=== PATIENT | female | born 1985 | race American Indian/Alaskan Native ===

== ENCOUNTER 2018-04-09 22:13 | Observation (INO) | payer MEDICAID ==
[2018-04-09] MEDS ORDERED: COLACE PO PRN (22:39)
[2018-04-09] MEDS ORDERED: ALUM-MAG HYDROX-SIMETH 200-200-20MG/5ML PO PRN (22:39)
[2018-04-09] MEDS ORDERED: TYLENOL PO PRN (22:39)
--- NOTE | 2018-04-09 22:49 | History and Physical Report ---
History of Present Illness Date of examination: 04/09/18 History of present illness: Patient seen at maternal medicine date of admission with a diagnosis of oligohydramnios. Discussed with Dr. Beaver decided to place patient in hydrate and repeat ultrasound if continued oligohydramnios with move toward induction of labor Menstrual History Regularity: irregular Duration: 5 LMP: 07/19/2017 LMP reliability: month known LMP character: normal test type: urine test Date: 12/22/2017 BC at conception: other hormonal Planned ? no EDC Calculations EDC Confirmation: 05/06/2018 Past History : 4 Term Births: 2 Premature Births: 0 Living Children: 2 Para: 2 Mult. Births: 0 Prev : 0 Prev. attempt? 0 Aborta: 1 Elect. Ab: 1 Spont. Ab: 0 Ectopics: 0 # 1 Delivery date: 2004 Weeks Gestation: term labor: no Delivery type: Infant Sex: Female weight: 6#1 # 2 Delivery date: 2007 Weeks Gestation: term labor: no Delivery type: Infant Sex: Male weight: 6#9 # 3 Delivery date: 2013 Weeks Gestation: 6 Delivery type: EAB Risk Factors: Smoked Tobacco Use: Never smoker Smokeless Tobacco Use: Never Passive smoke exposure: no Drug use: no HIV high-risk behavior: low risk Alcohol use: no Seatbelt use: 100 % Family History Risk Factors: Family History of VA in females < 65 years old: no Family History of VA in males < 55 years old: no Past Medical History: Negative Past Medical History Past Surgical History: R ankle - screws and plates Past Medical History Surgery (Non-ob gyn): R ankle - screws and plates Abnormal PAP: negative Family Hx: HTN - MGM, mother Social Hx: single Works [employer] no etoh/drugs/smoking Infection History Hx of STD: none HIV Risk Eval: low risk Hepatitis B Risk Eval: low risk Personal hx. of genital herpes: no Partner hx. of genital herpes: no Rash, Viral, or Febrile illness since last LMP? no Varicella/Chicken Pox Status: Previous Disease Genetic History Congenital Heart Defect: Mom: no Dad: no Shayla Disease: Mom: no Dad: no Thalassemia Mom: no Dad: no Neural Tube Defect Mom: no Dad: no Down's Syndrome Mom: no Dad: no Negro-Sachs Mom: no Dad: no Sickle Cell Disease/Trait Mom: no Dad: no Hemophilia Mom: no Dad: no Muscular Dystrophy Mom: no Dad: no Cystic Fibrosis Mom: no Dad: no [place] Chorea Mom: no Dad: no Mental Retardation Mom: no Dad: no Fragile X Mom: no Dad: no Other Genetic/Chromosomal Disorder Mom: no Dad: no Child w/other defect Mom: no Dad: no Enviromental Exposures Xray Exposure: no Medication, drug, or alcohol use since LMP: no Chemical/Other Exposure: no Exposure to Cat Liter: no Hx of Parvovirus (Fifth Disease): no Occupational Exposure to Children: none Current Allergies: No known allergies Past History Past Medical History: other (see HPI) Past Surgical History: other (see HPI) 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) Family/Genetic History: other (see HPI) Social history: other (see HPI) - Obstetrical History Expected Date of Delivery: 05/06/18 Actual Gestation: 36 Week(s) 2 Day(s) : 4 Para: 2 Hx # Term Pregnancies: 2 Number of Pregnancies: 0 Spontaneous Abortions: 0 Induced : 1 Number of Living Children: 2 Medications and Allergies Allergies Allergy/AdvReac Type Severity Reaction Status Date / Time No Known Allergies Allergy Verified 04/09/18 23:38 - Physical Exam Breasts: Positive: deferred Cardiovascular: Regular rate Lungs: Positive: Normal air movement Abdomen: Positive: normal appearance, soft Results All other labs normal. Assessment and Plan - Patient Problems (1) Oligohydramnios in [place] in third trimester Current Visit: Yes Status: Acute Plan to address problem: We'll admit and hydrate overnight repeat ultrasound in the morning
[2018-04-09] MEDS ORDERED: LACTATED RINGERS 1,000 ML IV SCH (23:00)
--- NOTE | 2018-04-10 08:15 | Ultrasound Report ---
FINAL REPORT EXAM: US OB LIMITED HISTORY: F/u olihydramnios after hydration COMPARISONS: None provided. FINDINGS: Transabdominal limited 3rd trimester grayscale, color Doppler and M-mode ultrasound Single living intrauterine in cephalic presentation with recorded cardiac activity of 146 beats per minute and amniotic fluid index of 8.5 cm with maximum vertical pocket of 4 cm. IMPRESSION: Amniotic fluid index is 8.5 cm with maximum vertical pocket of 4 cm. Correlation with prior exams is requested. Single living intrauterine .
[2018-04-10 08:44] VITALS: BP 122/67
--- NOTE | 2018-04-10 08:52 | Discharge Summary ---
Providers - Providers Date of Admission: 04/10/18 02:32 Date of discharge: 04/10/18 Attending physician: JOSE ANGEL MCKEON Primary care physician: JOSE ANGEL MCKEON Hospitalization Reason for admission: Observation for Oligohydramnios Condition: Good Pertinent studies: repeat CASIMIRO 8.5. Spoke with Dr. Beaver, he states she may be d/c'd home with any CASIMIRO >5. Procedures: IVF hydration Hospital course: observation and IVF hydration Disposition: DC-01 TO HOME OR SELFCARE - Discharge Diagnoses (1) Oligohydramnios in [place] in third trimester Status: Acute Core Measure Documentation - Palliative Care Palliative Care/ Comfort Measures: Not Applicable - Core Measures Any of the following diagnoses?: none Exam - Constitutional Vitals: Temp Pulse Resp BP Pulse Ox 97.8 F 78 18 122/67 04/10/18 08:43 04/10/18 08:48 04/10/18 08:43 04/10/18 08:48 General appearance: Present: no acute distress, well-nourished - EENT Eyes: Present: PERRL ENT: hearing intact, clear oral mucosa - Neck Neck: Present: supple, normal ROM - Respiratory Respiratory effort: normal Respiratory: bilateral: CTA - Cardiovascular Heart Sounds: Present: S1 & S2. Absent: rub, click - Extremities Extremities: pulses symmetrical, No edema Peripheral Pulses: within normal limits - Abdominal General gastrointestinal: Present: soft, non-tender, non-distended, normal bowel sounds Female genitourinary: Present: normal - Integumentary Integumentary: Present: clear, warm, dry - Musculoskeletal Musculoskeletal: gait normal, strength equal bilaterally - Psychiatric Psychiatric: appropriate mood/affect, intact judgment & insight - Neurologic Neurologic: CNII-XII intact, moves all extremities - Additional findings Additional findings: FHT cat 1, no ctx, leaking or vaginal bleeding Plan Activity: no restrictions Diet: regular Follow up with: JOSE ANGEL MCKEON MD [Primary Care Provider] - 04/18/18 2:15 pm (Please keep your next scheduled appointment with both [facility] and our office. Call for any questions or concerns.)
[2018-04-10] MEDS ORDERED: PRENATAL VITAMIN PO SCH (10:00)
== END 2018-04-10 10:10 | disposition home or self-care (01) ==
LOC: TRG 22:13 → LD 22:39 → TRG 04-10 02:32 → LD 04-10 02:32
PROVIDERS: ADMIT Obstetrics & Gynecology; ATTEND Obstetrics & Gynecology
DX: O41.03X0 Oligohydramnios, third trimester, not applicable or unspecified (principal); Z3A.36 36 weeks gestation of pregnancy
CPT/HCPCS: 76815; 96360; 96361; G0378; J7120

== ENCOUNTER 2018-04-18 09:17 | Inpatient (IN) | payer MEDICAID ==
[2018-04-18] MEDS ORDERED: BRETHINE SUB-Q PRN (09:35)
[2018-04-18] MEDS ORDERED: ePHEDrine SULFATE IV PRN (09:35)
[2018-04-18] MEDS ORDERED: XYLOCAINE 2% INFILTRATI NR (09:35)
--- NOTE | 2018-04-18 09:52 | History and Physical Report ---
History of Present Illness Date of examination: 04/18/18 (pt presents for IOL due to persistent Oligo) Date of admission: 04/18/18 09:17 History of present illness: EDC Confirmation: 05/06/2018 Gestational Age: 20 5/7 weeks Past History : 4 Term Births: 2 Premature Births: 0 Living Children: 2 Para: 2 Mult. Births: 0 Prev : 0 Prev. attempt? 0 Aborta: 1 Elect. Ab: 1 Spont. Ab: 0 Ectopics: 0 # 1 Delivery date: 2004 Weeks Gestation: term labor: no Delivery type: Infant Sex: Female weight: 6#1 # 2 Delivery date: 2006 Weeks Gestation: term labor: no Delivery type: Infant Sex: Male weight: 6#9 # 3 Delivery date: 2013 Weeks Gestation: 6 Delivery type: EAB Risk Factors: Smoked Tobacco Use: Never smoker Smokeless Tobacco Use: Never Passive smoke exposure: no Drug use: no HIV high-risk behavior: low risk Alcohol use: no Seatbelt use: 100 % Family History Risk Factors: Family History of RI in females < 65 years old: no Family History of RI in males < 55 years old: no Past Medical History: Negative Past Medical History Past Surgical History: R ankle - screws and plates Past Medical History 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 of genital herpes: no Partner hx. of genital herpes: no Rash, Viral, or Febrile illness since last LMP? no Varicella/Chicken Pox Status: Previous Disease Genetic History Congenital Heart Defect: Mom: no Dad: no Shayla Disease: Mom: no Dad: no Thalassemia Mom: no Dad: no Neural Tube Defect Mom: no Dad: no Down's Syndrome Mom: no Dad: no Negro-Sachs Mom: no Dad: no Sickle Cell Disease/Trait Mom: no Dad: no Hemophilia Mom: no Dad: no Muscular Dystrophy Mom: no Dad: no Cystic Fibrosis Mom: no Dad: no [place] Chorea Mom: no Dad: no Mental Retardation Mom: no Dad: no Fragile X Mom: no Dad: no Other Genetic/Chromosomal Disorder Mom: no Dad: no Child w/other defect Mom: no Dad: no Enviromental Exposures Xray Exposure: no Medication, drug, or alcohol use since LMP: no Chemical/Other Exposure: no Exposure to Cat Liter: no Hx of Parvovirus (Fifth Disease): no Occupational Exposure to Children: none Current Allergies: No known allergies Past History - Obstetrical History Expected Date of Delivery: 05/05/18 Actual Gestation: 37 Week(s) 4 Day(s) : 4 Para: 2 Hx # Term Pregnancies: 2 Number of Pregnancies: 0 Spontaneous Abortions: 0 Induced : 1 Number of Living Children: 2 Medications and Allergies Allergies Allergy/AdvReac Type Severity Reaction Status Date / Time No Known Allergies Allergy Verified 04/09/18 23:38 - Physical Exam Breasts: Positive: deferred Cardiovascular: Regular rate, Normal S1, Normal S2 Lungs: Positive: Clear to auscultation, Normal air movement Abdomen: Positive: normal appearance, soft, normal bowel sounds. Negative: distention, tenderness Vulva: both: normal Vagina: Positive: normal moisture. Negative: discharge Cervix: Negative: lesion, discharge Uterus: Positive: normal size, normal contour Adnexa: both: normal Anus/Rectum: Positive: normal perianal skin, heme negative. Negative: rectal mass, hemorrhoids Extremities: Positive: edema Deep Tendon Reflex Grade: Normal +2 - Obstetrical FHR: category 1 Uterine Contraction Monitor Mode: External Cervical Dilatation: 2 (very posterior) Cervical Effacement Percentage: 50 station: -3 Uterine Contraction Pattern: Irregular Uterine Tone Measurement Phase: Resting Uterine Contraction Intensity: Mild Results Result Diagrams: 04/18/18 10:50 All other labs normal. GBS negative 04-06-18 Current OB Labs Blood Type: O (09/28/2017) Rh Type: positive (09/28/2017) Rh Antibody Screen: negative (09/28/2017) Hgb: 12.2 (09/28/2017) Hct: 36.1 (09/28/2017) Platelets: 236 (09/28/2017) Rubella: immune (09/28/2017) RPR: nonreactive (09/28/2017) Hep B Surface Antigen: negative (09/28/2017) HIV: negative (09/28/2017) Urine Culture: negative (09/28/2017) Optional Labs Varicella Ab: positive (09/28/2017) Sickle Cell: negative (09/28/2017) Hepatitis C: negative (09/28/2017) Assessment and Plan 32yo @ 37 weeks for IOL due to oligo GBS negative Orders in EMR
[2018-04-18] MEDS ORDERED: PITOCin/NS 30 UNIT/500ML 30 UNITS/500 ML BAG IV SCH (10:00)
[2018-04-18] MEDS ORDERED: PITOCin/NS 20 UNIT/1000ML DRIP 20 UNITS/1,000 ML BAG IV SCH (10:00)
[2018-04-18 11:34] LABS: Hematocrit 35.9 % (30.3-42.9); Hemoglobin 12.8 gm/dl (10.1-14.3); Mean Corpuscular HGB Conc 36 % (30-34); Mean Corpuscular Hemoglobin 33 pg (28-32); Mean Corpuscular Volume 93 fl (79-97); Platelet Count 171 K/mm3 (140-440); Red Blood Count 3.85 M/mm3 (3.65-5.03); Red Cell Distribution Width 13.9 % (13.2-15.2)
[2018-04-18] MEDS ORDERED: FLEET PR ONE (13:30)
[2018-04-18] MEDS: LACTATED RINGERS 1,000 ML IV SCH (13:34)
[2018-04-18] MEDS: ZOFRAN IV PRN (13:55)
--- NOTE | 2018-04-18 17:29 | Event Note ---
Date: 04/18/18 (pit off; cervidil @ 1999) explained POC to pt and family Pit off at this time Dinner and PM care. Will place Cervidil @ 1999 All questions addressed.
[2018-04-18] MEDS ORDERED: CERVIDIL VG ONE (20:00)
[2018-04-18] MEDS ORDERED: MINERAL OIL PO PRN (22:00)
[2018-04-19] MEDS: LACTATED RINGERS 1,000 ML IV SCH ×4 (01:20→19:58)
--- NOTE | 2018-04-19 07:42 | Progress Note ---
Assessment and Plan - Patient Problems (1) Oligohydramnios in [place] in third trimester Onset Date: ~04/19/18 Current Visit: No Status: Acute Plan to address problem: Pt A&O X 3 C/O some cramping VSS Cervidil remove SVE 1-2,50,-2 Pt OOB for AM care. Diet Will start pitocin @ 0900 All questions addressed. aware Subjective - Subjective Date of service: 04/19/18 (pt A&O X 3) Principal diagnosis: IUP 37.4 weeks Oligo IOL Interval history: EDC Confirmation: 05/06/2018 Gestational Age: 20 5/7 weeks Past History : 4 Term Births: 2 Premature Births: 0 Living Children: 2 Para: 2 Mult. Births: 0 Prev : 0 Prev. attempt? 0 Aborta: 1 Elect. Ab: 1 Spont. Ab: 0 Ectopics: 0 # 1 Delivery date: 2004 Weeks Gestation: term labor: no Delivery type: Sex: Female weight: 6#1 # 2 Delivery date: 2007 Weeks Gestation: term labor: no Delivery type: Sex: Male weight: 6#9 # 3 Delivery date: 2013 Weeks Gestation: 6 Delivery type: EAB Risk Factors: Smoked Tobacco Use: Never smoker Smokeless Tobacco Use: Never Passive smoke exposure: no Drug use: no HIV high-risk behavior: low risk Alcohol use: no Seatbelt use: 100 % Family History Risk Factors: Family History of AK in females < 65 years old: no Family History of AK in males < 55 years old: no Past Medical History: Negative Past Medical History Past Surgical History: R ankle - screws and plates Past Medical History 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 of genital herpes: no Partner hx. of genital herpes: no Rash, Viral, or Febrile illness since last LMP? no Varicella/Chicken Pox Status: Previous Disease Genetic History Congenital Heart Defect: Mom: no Dad: no Shayla Disease: Mom: no Dad: no Thalassemia Mom: no Dad: no Neural Tube Defect Mom: no Dad: no Down's Syndrome Mom: no Dad: no Negro-Sachs Mom: no Dad: no Sickle Cell Disease/Trait Mom: no Dad: no Hemophilia Mom: no Dad: no Muscular Dystrophy Mom: no Dad: no Cystic Fibrosis Mom: no Dad: no [place] Chorea Mom: no Dad: no Mental Retardation Mom: no Dad: no Fragile X Mom: no Dad: no Other Genetic/Chromosomal Disorder Mom: no Dad: no Child w/other defect Mom: no Dad: no Enviromental Exposures Xray Exposure: no Medication, drug, or alcohol use since LMP: no Chemical/Other Exposure: no Exposure to Cat Liter: no Hx of Parvovirus (Fifth Disease): no Occupational Exposure to Children: none Current Allergies: No known allergies Patient reports: movement normal Objective - Vital Signs Vital Signs: Vital Signs - 12hr 04/18/18 04/18/18 04/18/18 20:00 20:07 22:37 Temperature 97.9 F Pulse Rate 85 85 77 Respiratory 18 Rate Blood Pressure 120/61 126/73 04/18/18 04/18/18 04/19/18 23:00 23:38 00:38 Temperature 98.9 F Pulse Rate 78 79 Respiratory Rate Blood Pressure 104/57 120/61 04/19/18 04/19/18 04/19/18 01:47 02:37 03:37 Temperature Pulse Rate 69 77 74 Respiratory Rate Blood Pressure 117/67 119/57 125/60 04/19/18 04/19/18 04/19/18 04:37 05:00 05:38 Temperature 97.4 F L Pulse Rate 80 77 Respiratory Rate Blood Pressure 108/53 136/76 04/19/18 04/19/18 06:37 07:39 Temperature Pulse Rate 88 89 Respiratory Rate Blood Pressure 137/74 141/77 - Exam Breasts: deferred Cardiovascular: Regular rate Lungs: Normal air movement Abdomen: Present: normal appearance, soft. Absent: distention, tenderness Uterus: Present: normal FHR: auscultation normal Uterine Contraction Monitor Mode: External Cervical Dilatation: 1.5 (cervidil removed) Cervical Effacement Percentage: 50 station: -2 Uterine Contraction Pattern: Irregular Uterine Contraction Intensity: Mild Extremities: edema Deep Tendon Reflex Grade: Normal +2 - Labs Labs: Abnormal Labs 04/18/18 10:50 MCH 33 H MCHC 36 H Laboratory Results - last 24 hr 08/01/18 08/01/18 08/01/18 10:50 10:50 10:50 WBC 10.5 RBC 3.85 Hgb 12.8 Hct 35.9 MCV 93 MCH 33 H MCHC 36 H RDW 13.9 Plt Count 171 RPR Nonreactive Blood Type O POSITIVE Antibody Screen Negative
[2018-04-19] MEDS: PITOCin/NS 30 UNIT/500ML 30 UNITS/500 ML BAG IV SCH ×6 (09:40→14:57)
--- NOTE | 2018-04-19 14:55 | Event Note ---
Date: 04/19/18 (stop pitocin @ 1700) Pt may have PM care and diet. Place Cervidil @ 2000
[2018-04-19] MEDS: SUBLIMAZE IV PRN ×2 (17:15→18:52)
[2018-04-19] MEDS: ZOFRAN IV PRN (17:19)
[2018-04-19] MEDS ORDERED: D5LR 1,000 ML IV ONE (17:52)
--- NOTE | 2018-04-19 18:29 | Progress Note ---
Assessment and Plan Anticipate vaginal delivery - Patient Problems (1) 37 weeks gestation of Current Visit: Yes Status: Acute (2) Oligohydramnios in [place] in third trimester Onset Date: ~04/19/18 Current Visit: No Status: Acute Subjective - Subjective Date of service: 04/19/18 Principal diagnosis: IUP 37.4 weeks Oligo IOL Patient reports: loss of fluid (SROM at 500p), movement normal, contractions Objective - Vital Signs Vital Signs: Vital Signs - 12hr 04/19/18 04/19/18 04/19/18 06:37 07:39 07:41 Temperature 98 F Pulse Rate 88 89 89 Respiratory 16 Rate Blood Pressure 137/74 141/77 Blood Pressure 122/66 [Left] 04/19/18 04/19/18 07:48 17:15 Temperature Pulse Rate 79 Respiratory 18 Rate Blood Pressure 122/66 Blood Pressure [Left] - Exam Breasts: deferred Lungs: Normal air movement Vulva: both: normal Uterus: Present: fundal height above umbilicus FHR: category 1 Cervical Dilatation: 3 (Procedure explained, ISE and IUPC placed w/o difficulty) Cervical Effacement Percentage: 70 station: -2 Uterine Contraction Frequency (min): 2-5 Uterine Contraction Pattern: Irregular Extremities: normal - Labs Labs: Abnormal Labs 04/18/18 10:50 MCH 33 H MCHC 36 H
[2018-04-19] MEDS ORDERED: NARCAN 2 MG/2 ML IV PRN (19:22)
[2018-04-19] MEDS ORDERED: fentaNYL-BUPIV 2 MCG/ML-0.125% 200 MCG/100 ML BAG EPIDURAL SCH (20:00)
[2018-04-19] MEDS ORDERED: CERVIDIL VG ONE (20:00)
[2018-04-19] MEDS: ePHEDrine SULFATE IV PRN ×2 (20:01→20:30)
--- NOTE | 2018-04-19 20:54 | Progress Note ---
Assessment and Plan O2 placed, observe closely continue augmentation - Patient Problems (1) 37 weeks gestation of Current Visit: Yes Status: Acute (2) Oligohydramnios in [place] in third trimester Onset Date: ~04/19/18 Current Visit: No Status: Acute Subjective - Subjective Date of service: 04/19/18 Principal diagnosis: IUP 37.4 weeks Oligo IOL Patient reports: loss of fluid (SROM at 500p), movement normal, no contractions Objective - Vital Signs Vital Signs: Vital Signs - 12hr 04/19/18 04/19/18 04/19/18 17:15 18:57 18:59 Pulse Rate 93 H 82 Respiratory 18 Rate Blood Pressure O2 Sat by Pulse 97 92 Oximetry 04/19/18 04/19/18 04/19/18 19:02 19:07 19:12 Pulse Rate 93 H 107 H 99 H Respiratory Rate Blood Pressure O2 Sat by Pulse 90 95 95 Oximetry 04/19/18 04/19/18 04/19/18 19:17 19:22 19:27 Pulse Rate 99 H 106 H 103 H Respiratory Rate Blood Pressure O2 Sat by Pulse 100 98 97 Oximetry 04/19/18 04/19/18 04/19/18 19:32 19:33 19:41 Pulse Rate 98 H 109 H 98 H Respiratory Rate Blood Pressure O2 Sat by Pulse 100 81 L 100 Oximetry 04/19/18 04/19/18 04/19/18 19:46 19:48 19:51 Pulse Rate 92 H 89 Respiratory Rate Blood Pressure O2 Sat by Pulse 98 94 71 L Oximetry 04/19/18 04/19/18 04/19/18 19:52 19:53 19:56 Pulse Rate 100 H 36 L 91 H Respiratory Rate Blood Pressure 143/82 O2 Sat by Pulse 62 L 100 Oximetry 04/19/18 04/19/18 04/19/18 19:59 20:01 20:03 Pulse Rate 83 98 H 89 Respiratory Rate Blood Pressure 115/57 105/51 97/54 O2 Sat by Pulse 96 94 Oximetry 04/19/18 04/19/18 04/19/18 20:05 20:06 20:07 Pulse Rate 96 H 87 83 Respiratory Rate Blood Pressure 98/52 91/54 120/75 O2 Sat by Pulse 96 Oximetry 04/19/18 04/19/18 04/19/18 20:11 20:13 20:15 Pulse Rate 99 H 99 H 104 H Respiratory Rate Blood Pressure 128/61 136/63 128/60 O2 Sat by Pulse 100 Oximetry 04/19/18 04/19/18 04/19/18 20:16 20:17 20:19 Pulse Rate 98 H 101 H 96 H Respiratory Rate Blood Pressure 130/63 132/62 O2 Sat by Pulse 100 Oximetry 04/19/18 04/19/18 04/19/18 20:21 20:23 20:25 Pulse Rate 105 H 106 H 103 H Respiratory Rate Blood Pressure 130/60 115/55 115/57 O2 Sat by Pulse 100 Oximetry 04/19/18 04/19/18 04/19/18 20:26 20:27 20:29 Pulse Rate 107 H 97 H 57 L Respiratory Rate Blood Pressure 105/55 114/59 O2 Sat by Pulse 100 60 L Oximetry 04/19/18 04/19/18 04/19/18 20:31 20:32 20:35 Pulse Rate 116 H 109 H 98 H Respiratory Rate Blood Pressure 100/52 118/56 O2 Sat by Pulse 100 Oximetry 04/19/18 04/19/18 04/19/18 20:36 20:37 20:39 Pulse Rate 101 H 108 H 102 H Respiratory Rate Blood Pressure 120/62 114/56 O2 Sat by Pulse 100 Oximetry 04/19/18 04/19/18 04/19/18 20:41 20:43 20:45 Pulse Rate 99 H 100 H 96 H Respiratory Rate Blood Pressure 119/56 128/60 118/56 O2 Sat by Pulse 100 Oximetry 04/19/18 04/19/18 04/19/18 20:46 20:47 20:49 Pulse Rate 94 H 93 H 96 H Respiratory Rate Blood Pressure 122/60 136/60 O2 Sat by Pulse 100 Oximetry 04/19/18 04/19/18 20:51 20:53 Pulse Rate 92 H 95 H Respiratory Rate Blood Pressure 138/63 127/59 O2 Sat by Pulse 100 Oximetry - Exam Narrative Exam: resting comfortably right lateral position Breasts: deferred Lungs: Normal air movement Abdomen: Present: other (obese) Vulva: both: normal Uterus: Present: fundal height above umbilicus (good variability, late decelerations noted, s/p epidural with hypotension) FHR: category 2, other (good variability,late decelerations, variables, s/p epidural with hypotension, IVF bolus given as well as several doses of ephedrine. Patient repositioned and kaur placed with resolution of lates, variability maintain) Cervical Dilatation: 5 Cervical Effacement Percentage: 70 station: -1 Uterine Contraction Pattern: Regular - Labs Labs: Abnormal Labs 04/18/18 10:50 MCH 33 H MCHC 36 H
--- NOTE | 2018-04-20 01:23 | Progress Note ---
Assessment and Plan - Patient Problems (1) 37 weeks gestation of Current Visit: Yes Status: Acute (2) Oligohydramnios in [place] in third trimester Onset Date: ~04/19/18 Current Visit: No Status: Acute (3) Failure of cervical dilation Current Visit: Yes Status: Acute Plan to address problem: Minimal cervical change for the last 5hours, options discussed: continued TRESA ve c/s delivery. Risks with c/s explained including not but limited to bleeding , infection, injury to bladder, bowel or major vascular injury. Consent reviewed and signed for delivery. Will allow Fentanyl for now. (4) Sterilization Current Visit: Yes Status: Acute Plan to address problem: Consent for sterilization on chart, she aware the most common complication of sterilization is regret, sterilization is a permanent procedure and she will not be able to get after her tubes are tied. Subjective - Subjective Date of service: 04/20/18 Principal diagnosis: IUP 37.4 weeks Oligo IOL Patient reports: movement normal, contractions (Back and butt pain, constant) Objective - Vital Signs Vital Signs: Vital Signs - 12hr 04/19/18 04/19/18 04/19/18 17:15 18:57 18:59 Temperature Pulse Rate 93 H 82 Respiratory 18 Rate Blood Pressure O2 Sat by Pulse 97 92 Oximetry 04/19/18 04/19/18 04/19/18 19:02 19:07 19:12 Temperature Pulse Rate 93 H 107 H 99 H Respiratory Rate Blood Pressure O2 Sat by Pulse 90 95 95 Oximetry 04/19/18 04/19/18 04/19/18 19:17 19:22 19:27 Temperature Pulse Rate 99 H 106 H 103 H Respiratory Rate Blood Pressure O2 Sat by Pulse 100 98 97 Oximetry 04/19/18 04/19/18 04/19/18 19:32 19:33 19:41 Temperature Pulse Rate 98 H 109 H 98 H Respiratory Rate Blood Pressure O2 Sat by Pulse 100 81 L 100 Oximetry 04/19/18 04/19/18 04/19/18 19:46 19:48 19:51 Temperature Pulse Rate 92 H 89 Respiratory Rate Blood Pressure O2 Sat by Pulse 98 94 71 L Oximetry 04/19/18 04/19/18 04/19/18 19:52 19:53 19:56 Temperature Pulse Rate 100 H 36 L 91 H Respiratory Rate Blood Pressure 143/82 O2 Sat by Pulse 62 L 100 Oximetry 04/19/18 04/19/18 04/19/18 19:59 20:00 20:01 Temperature 98.1 F Pulse Rate 83 98 H Respiratory 16 Rate Blood Pressure 115/57 105/51 O2 Sat by Pulse 96 Oximetry 04/19/18 04/19/18 04/19/18 20:03 20:05 20:06 Temperature Pulse Rate 89 96 H 87 Respiratory Rate Blood Pressure 97/54 98/52 91/54 O2 Sat by Pulse 94 96 Oximetry 04/19/18 04/19/18 04/19/18 20:07 20:11 20:13 Temperature Pulse Rate 83 99 H 99 H Respiratory Rate Blood Pressure 120/75 128/61 136/63 O2 Sat by Pulse 100 Oximetry 04/19/18 04/19/18 04/19/18 20:15 20:16 20:17 Temperature Pulse Rate 104 H 98 H 101 H Respiratory Rate Blood Pressure 128/60 130/63 O2 Sat by Pulse 100 Oximetry 04/19/18 04/19/18 04/19/18 20:19 20:21 20:23 Temperature Pulse Rate 96 H 105 H 106 H Respiratory Rate Blood Pressure 132/62 130/60 115/55 O2 Sat by Pulse 100 Oximetry 04/19/18 04/19/18 04/19/18 20:25 20:26 20:27 Temperature Pulse Rate 103 H 107 H 97 H Respiratory Rate Blood Pressure 115/57 105/55 O2 Sat by Pulse 100 Oximetry 04/19/18 04/19/18 04/19/18 20:29 20:31 20:32 Temperature Pulse Rate 57 L 116 H 109 H Respiratory Rate Blood Pressure 114/59 100/52 O2 Sat by Pulse 60 L 100 Oximetry 04/19/18 04/19/18 04/19/18 20:35 20:36 20:37 Temperature Pulse Rate 98 H 101 H 108 H Respiratory Rate Blood Pressure 118/56 120/62 O2 Sat by Pulse 100 Oximetry 04/19/18 04/19/18 04/19/18 20:39 20:41 20:43 Temperature Pulse Rate 102 H 99 H 100 H Respiratory Rate Blood Pressure 114/56 119/56 128/60 O2 Sat by Pulse 100 Oximetry 04/19/18 04/19/18 04/19/18 20:45 20:46 20:47 Temperature Pulse Rate 96 H 94 H 93 H Respiratory Rate Blood Pressure 118/56 122/60 O2 Sat by Pulse 100 Oximetry 04/19/18 04/19/18 04/19/18 20:49 20:51 20:53 Temperature Pulse Rate 96 H 92 H 95 H Respiratory Rate Blood Pressure 136/60 138/63 127/59 O2 Sat by Pulse 100 Oximetry 04/19/18 04/19/18 04/19/18 20:55 20:56 20:57 Temperature Pulse Rate 93 H 97 H 89 Respiratory Rate Blood Pressure 127/60 126/61 O2 Sat by Pulse 100 Oximetry 04/19/18 04/19/18 04/19/18 20:59 21:01 21:02 Temperature Pulse Rate 97 H 91 H 94 H Respiratory Rate Blood Pressure 126/58 136/56 O2 Sat by Pulse 100 Oximetry 04/19/18 04/19/18 04/19/18 21:05 21:06 21:07 Temperature Pulse Rate 99 H 102 H 99 H Respiratory Rate Blood Pressure 129/58 138/63 O2 Sat by Pulse 100 Oximetry 04/19/18 04/19/18 04/19/18 21:09 21:11 21:13 Temperature Pulse Rate 99 H 100 H 96 H Respiratory Rate Blood Pressure 130/57 120/58 121/56 O2 Sat by Pulse 100 Oximetry 04/19/18 04/19/18 04/19/18 21:15 21:16 21:17 Temperature Pulse Rate 106 H 102 H 100 H Respiratory Rate Blood Pressure 109/52 114/54 O2 Sat by Pulse 100 Oximetry 04/19/18 04/19/18 04/19/18 21:19 21:21 21:26 Temperature Pulse Rate 92 H 96 H 107 H Respiratory Rate Blood Pressure 114/54 115/56 O2 Sat by Pulse 100 100 Oximetry 04/19/18 04/19/18 04/19/18 21:31 21:36 21:41 Temperature Pulse Rate 116 H 103 H 125 H Respiratory Rate Blood Pressure 147/71 O2 Sat by Pulse 99 99 99 Oximetry 04/19/18 04/19/18 04/19/18 21:46 21:51 21:56 Temperature Pulse Rate 116 H 119 H 113 H Respiratory Rate Blood Pressure O2 Sat by Pulse 99 99 98 Oximetry 04/19/18 04/19/18 04/19/18 22:00 22:01 22:06 Temperature 98.1 F Pulse Rate 104 H 105 H Respiratory 16 Rate Blood Pressure 146/67 O2 Sat by Pulse 97 97 Oximetry 04/19/18 04/19/18 04/19/18 22:11 22:16 22:17 Temperature Pulse Rate 105 H 103 H 104 H Respiratory Rate Blood Pressure 147/69 O2 Sat by Pulse 97 97 Oximetry 04/19/18 04/19/18 04/19/18 22:21 22:26 22:31 Temperature Pulse Rate 111 H 113 H 109 H Respiratory Rate Blood Pressure O2 Sat by Pulse 97 96 96 Oximetry 04/19/18 04/19/18 04/19/18 22:36 22:41 22:45 Temperature Pulse Rate 108 H 105 H 111 H Respiratory Rate Blood Pressure 187/76 O2 Sat by Pulse 96 97 Oximetry 04/19/18 04/19/18 04/19/18 22:46 22:51 22:56 Temperature Pulse Rate 115 H 117 H 131 H Respiratory Rate Blood Pressure O2 Sat by Pulse 95 96 96 Oximetry 04/19/18 04/19/18 04/19/18 23:00 23:01 23:06 Temperature Pulse Rate 118 H 119 H 126 H Respiratory Rate Blood Pressure O2 Sat by Pulse 94 96 95 Oximetry 04/19/18 04/19/18 04/19/18 23:11 23:16 23:21 Temperature Pulse Rate 120 H 119 H 118 H Respiratory Rate Blood Pressure O2 Sat by Pulse 95 100 99 Oximetry 04/19/18 04/19/18 04/19/18 23:22 23:30 23:38 Temperature 98.1 F Pulse Rate 122 H 101 H Respiratory 18 Rate Blood Pressure 147/97 159/84 O2 Sat by Pulse Oximetry 04/19/18 04/20/18 04/20/18 23:45 00:01 00:15 Temperature Pulse Rate 100 H 113 H 101 H Respiratory Rate Blood Pressure 173/74 174/75 150/70 O2 Sat by Pulse Oximetry 04/20/18 04/20/18 04/20/18 00:31 00:45 01:02 Temperature Pulse Rate 117 H 105 H 116 H Respiratory Rate Blood Pressure 128/110 189/83 210/103 O2 Sat by Pulse Oximetry - Exam Breasts: deferred Lungs: Normal air movement Abdomen: Present: other (obese) FHR: category 2 Cervical Dilatation: 5.5 Cervical Effacement Percentage: 50 (swollen) station: -2 Uterine Contraction Pattern: Regular - Labs Labs: Abnormal Labs 04/18/18 10:50 MCH 33 H MCHC 36 H
[2018-04-20] MEDS: SUBLIMAZE IV PRN (01:29)
[2018-04-20] MEDS: LACTATED RINGERS 1,000 ML IV SCH (01:30)
[2018-04-20] MEDS ORDERED: REGLAN IV ONE ×2 (01:46→02:00)
[2018-04-20] MEDS ORDERED: BICITRA PO ONE ×2 (01:46→02:00)
[2018-04-20] MEDS ORDERED: PEPCID IV ONE ×2 (01:46→02:00)
--- NOTE | 2018-04-20 01:49 | Progress Note ---
Assessment and Plan tachycardia and no cervical change, patient desires to proceed with C/s with btl, salpingectomy - Patient Problems (1) 37 weeks gestation of Current Visit: Yes Status: Acute (2) Oligohydramnios in [place] in third trimester Onset Date: ~04/19/18 Current Visit: No Status: Acute (3) Failure of cervical dilation Current Visit: Yes Status: Acute (4) Sterilization Current Visit: Yes Status: Acute Subjective - Subjective Date of service: 04/20/18 Principal diagnosis: IUP 37.4 weeks Oligo IOL Patient reports: movement normal, contractions (Back and butt pain, constant) Objective - Vital Signs Vital Signs: Vital Signs - 12hr 04/19/18 04/19/18 04/19/18 17:15 18:57 18:59 Temperature Pulse Rate 93 H 82 Respiratory 18 Rate Blood Pressure O2 Sat by Pulse 97 92 Oximetry 04/19/18 04/19/18 04/19/18 19:02 19:07 19:12 Temperature Pulse Rate 93 H 107 H 99 H Respiratory Rate Blood Pressure O2 Sat by Pulse 90 95 95 Oximetry 04/19/18 04/19/18 04/19/18 19:17 19:22 19:27 Temperature Pulse Rate 99 H 106 H 103 H Respiratory Rate Blood Pressure O2 Sat by Pulse 100 98 97 Oximetry 04/19/18 04/19/18 04/19/18 19:32 19:33 19:41 Temperature Pulse Rate 98 H 109 H 98 H Respiratory Rate Blood Pressure O2 Sat by Pulse 100 81 L 100 Oximetry 04/19/18 04/19/18 04/19/18 19:46 19:48 19:51 Temperature Pulse Rate 92 H 89 Respiratory Rate Blood Pressure O2 Sat by Pulse 98 94 71 L Oximetry 04/19/18 04/19/18 04/19/18 19:52 19:53 19:56 Temperature Pulse Rate 100 H 36 L 91 H Respiratory Rate Blood Pressure 143/82 O2 Sat by Pulse 62 L 100 Oximetry 04/19/18 04/19/18 04/19/18 19:59 20:00 20:01 Temperature 98.1 F Pulse Rate 83 98 H Respiratory 16 Rate Blood Pressure 115/57 105/51 O2 Sat by Pulse 96 Oximetry 04/19/18 04/19/18 04/19/18 20:03 20:05 20:06 Temperature Pulse Rate 89 96 H 87 Respiratory Rate Blood Pressure 97/54 98/52 91/54 O2 Sat by Pulse 94 96 Oximetry 04/19/18 04/19/18 04/19/18 20:07 20:11 20:13 Temperature Pulse Rate 83 99 H 99 H Respiratory Rate Blood Pressure 120/75 128/61 136/63 O2 Sat by Pulse 100 Oximetry 04/19/18 04/19/18 04/19/18 20:15 20:16 20:17 Temperature Pulse Rate 104 H 98 H 101 H Respiratory Rate Blood Pressure 128/60 130/63 O2 Sat by Pulse 100 Oximetry 04/19/18 04/19/18 04/19/18 20:19 20:21 20:23 Temperature Pulse Rate 96 H 105 H 106 H Respiratory Rate Blood Pressure 132/62 130/60 115/55 O2 Sat by Pulse 100 Oximetry 04/19/18 04/19/18 04/19/18 20:25 20:26 20:27 Temperature Pulse Rate 103 H 107 H 97 H Respiratory Rate Blood Pressure 115/57 105/55 O2 Sat by Pulse 100 Oximetry 04/19/18 04/19/18 04/19/18 20:29 20:31 20:32 Temperature Pulse Rate 57 L 116 H 109 H Respiratory Rate Blood Pressure 114/59 100/52 O2 Sat by Pulse 60 L 100 Oximetry 04/19/18 04/19/18 04/19/18 20:35 20:36 20:37 Temperature Pulse Rate 98 H 101 H 108 H Respiratory Rate Blood Pressure 118/56 120/62 O2 Sat by Pulse 100 Oximetry 04/19/18 04/19/18 04/19/18 20:39 20:41 20:43 Temperature Pulse Rate 102 H 99 H 100 H Respiratory Rate Blood Pressure 114/56 119/56 128/60 O2 Sat by Pulse 100 Oximetry 04/19/18 04/19/18 04/19/18 20:45 20:46 20:47 Temperature Pulse Rate 96 H 94 H 93 H Respiratory Rate Blood Pressure 118/56 122/60 O2 Sat by Pulse 100 Oximetry 04/19/18 04/19/18 04/19/18 20:49 20:51 20:53 Temperature Pulse Rate 96 H 92 H 95 H Respiratory Rate Blood Pressure 136/60 138/63 127/59 O2 Sat by Pulse 100 Oximetry 04/19/18 04/19/18 04/19/18 20:55 20:56 20:57 Temperature Pulse Rate 93 H 97 H 89 Respiratory Rate Blood Pressure 127/60 126/61 O2 Sat by Pulse 100 Oximetry 04/19/18 04/19/18 04/19/18 20:59 21:01 21:02 Temperature Pulse Rate 97 H 91 H 94 H Respiratory Rate Blood Pressure 126/58 136/56 O2 Sat by Pulse 100 Oximetry 04/19/18 04/19/18 04/19/18 21:05 21:06 21:07 Temperature Pulse Rate 99 H 102 H 99 H Respiratory Rate Blood Pressure 129/58 138/63 O2 Sat by Pulse 100 Oximetry 04/19/18 04/19/18 04/19/18 21:09 21:11 21:13 Temperature Pulse Rate 99 H 100 H 96 H Respiratory Rate Blood Pressure 130/57 120/58 121/56 O2 Sat by Pulse 100 Oximetry 04/19/18 04/19/18 04/19/18 21:15 21:16 21:17 Temperature Pulse Rate 106 H 102 H 100 H Respiratory Rate Blood Pressure 109/52 114/54 O2 Sat by Pulse 100 Oximetry 04/19/18 04/19/18 04/19/18 21:19 21:21 21:26 Temperature Pulse Rate 92 H 96 H 107 H Respiratory Rate Blood Pressure 114/54 115/56 O2 Sat by Pulse 100 100 Oximetry 04/19/18 04/19/18 04/19/18 21:31 21:36 21:41 Temperature Pulse Rate 116 H 103 H 125 H Respiratory Rate Blood Pressure 147/71 O2 Sat by Pulse 99 99 99 Oximetry 04/19/18 04/19/18 04/19/18 21:46 21:51 21:56 Temperature Pulse Rate 116 H 119 H 113 H Respiratory Rate Blood Pressure O2 Sat by Pulse 99 99 98 Oximetry 04/19/18 04/19/18 04/19/18 22:00 22:01 22:06 Temperature 98.1 F Pulse Rate 104 H 105 H Respiratory 16 Rate Blood Pressure 146/67 O2 Sat by Pulse 97 97 Oximetry 04/19/18 04/19/18 04/19/18 22:11 22:16 22:17 Temperature Pulse Rate 105 H 103 H 104 H Respiratory Rate Blood Pressure 147/69 O2 Sat by Pulse 97 97 Oximetry 04/19/18 04/19/18 04/19/18 22:21 22:26 22:31 Temperature Pulse Rate 111 H 113 H 109 H Respiratory Rate Blood Pressure O2 Sat by Pulse 97 96 96 Oximetry 04/19/18 04/19/18 04/19/18 22:36 22:41 22:45 Temperature Pulse Rate 108 H 105 H 111 H Respiratory Rate Blood Pressure 187/76 O2 Sat by Pulse 96 97 Oximetry 04/19/18 04/19/18 04/19/18 22:46 22:51 22:56 Temperature Pulse Rate 115 H 117 H 131 H Respiratory Rate Blood Pressure O2 Sat by Pulse 95 96 96 Oximetry 04/19/18 04/19/18 04/19/18 23:00 23:01 23:06 Temperature Pulse Rate 118 H 119 H 126 H Respiratory Rate Blood Pressure O2 Sat by Pulse 94 96 95 Oximetry 04/19/18 04/19/18 04/19/18 23:11 23:16 23:21 Temperature Pulse Rate 120 H 119 H 118 H Respiratory Rate Blood Pressure O2 Sat by Pulse 95 100 99 Oximetry 04/19/18 04/19/18 04/19/18 23:22 23:30 23:38 Temperature 98.1 F Pulse Rate 122 H 101 H Respiratory 18 Rate Blood Pressure 147/97 159/84 O2 Sat by Pulse Oximetry 04/19/18 04/20/18 04/20/18 23:45 00:01 00:15 Temperature Pulse Rate 100 H 113 H 101 H Respiratory Rate Blood Pressure 173/74 174/75 150/70 O2 Sat by Pulse Oximetry 04/20/18 04/20/18 04/20/18 00:31 00:45 01:02 Temperature Pulse Rate 117 H 105 H 116 H Respiratory Rate Blood Pressure 128/110 189/83 210/103 O2 Sat by Pulse Oximetry 04/20/18 04/20/18 01:29 01:40 Temperature Pulse Rate 102 H Respiratory 18 Rate Blood Pressure 151/69 O2 Sat by Pulse Oximetry - Labs Labs: Abnormal Labs 04/18/18 10:50 MCH 33 H MCHC 36 H
[2018-04-20] MEDS ORDERED: LACTATED RINGERS 1,000 ML IV SCH (02:00)
[2018-04-20] MEDS ORDERED: PITOCin/NS 20 UNIT/1000ML DRIP 20 UNITS/1,000 ML BAG IV SCH ×2 (02:00→05:01)
[2018-04-20] MEDS ORDERED: ANCEF/STERILE WATER 2 GM/20 ML 2 GM/20 ML SYRINGE IV NR (02:00)
[2018-04-20] MEDS ORDERED: NEO SYNEPHRINE/NS Syringe(OR USE) IV ONE (02:07)
[2018-04-20] MEDS ORDERED: XYLOCAINE MPF 2% ONE (02:07)
[2018-04-20] MEDS ORDERED: TORADOL ONE (02:07)
[2018-04-20] MEDS ORDERED: ZOFRAN ONE (02:07)
[2018-04-20] MEDS ORDERED: SUBLIMAZE ONE ×3 (02:08→03:13)
[2018-04-20] MEDS ORDERED: LACTATED RINGERS 1,000 ML ONE (02:31)
[2018-04-20] MEDS ORDERED: NORMODYNE IV ONE (03:10)
[2018-04-20] MEDS ORDERED: BREVIBLOC IV ONE (03:12)
[2018-04-20] MEDS ORDERED: DILAUDID ONE (03:14)
[2018-04-20] MEDS ORDERED: APRESOLINE ONE (03:18)
--- NOTE | 2018-04-20 04:30 | Operative Report ---
Operative Report Operative Report: Date: 04/20/2018 Preoperative diagnosis: 1. Intrauterine at 37 weeks 2. Induction for oligohydramnios 3. Failure of cervical dilation 4. Body mass index 47 5. Desires sterilization 6. Persistent tachycardia Postoperative diagnosis: 1. Intrauterine at 37 weeks 2. Induction for oligohydramnios 3. Failure of cervical dilation 4. Body mass index 47 5. Desires sterilization 6. Persistent tachycardia 7. position occiput posterior persistent 8. Removal of Mirena intrauterine device Procedure: 1. Primary low transverse delivery 2. Bilateral salpingectomy for sterilization Surgeon: Arlyn Gu MD Server Developer: Patrizia Stephens Anesthesia: Epidural Anesthesiologist: Mariah Cruz M.D. Estimated blood loss: 700 mL Urine out: 200 mL Findings: Live born female . Weight 6 pounds 1 oz. Apgars 8 at 1 minute and 9 at 5 minutes. Grossly normal uterus, tubes and ovaries Procedure: After risk, benefits, complications, consequences and alternatives for th procedure were discussed with patient and consents were reviewed and signed, she was taken to the OR where epidural anesthesia was bolused. She was then placed in the left lateral tilt position, and prepped and draped in the usual sterile fashion. Timeout was performed, and an appropriate level of anesthesia was noted, a Pfannenstiel incision was made and extended to the fascia which was incised and extended in the lateral directions. The overlying fascia was sharply dissected away from the underlying rectus muscles in the superior and inferior directions. The midline was entered with blunt and sharp dissection. The large Sam self retaining retractor was placed. The vesicouterine fold was incised and with blunt dissection the bladder flap was created. A transverse incision was made in the lower uterine segment and extended in superiolateral direction with finger fractionation. Clear fluid was noted. The infant was delivered from cephalic occiput posterior position. Mouth and nose were bulb suctioned. Spontaneous cry and excellent tone were noted. Cord was doubly clamped and cut. The infant was given to /resuscitation team present. The placenta was manually extracted. At this point the patient mentioned getting with an IUD intact. Upon manual exploration of the uterus the IUD was found and removed and sent to pathology. The uterus was then exteriorized and cleared of any further products of conception or placental tissue. The incision was reapproximated using 0 Vicryl in a running interlocking stitch. A further suture 0 Vicryl imbricating fashion was placed. Once confirmation was obtained from the patient to proceed with sterilization the left tube was elevated with [place] clamp. Salpingectomy was performed in the proximal edge of the remaining tube was ligated with 0 Vicryl. Same procedure was performed on the right tube. Once hemostasis was noted attention was turned to the lower uterine segment incision. Hemostasis was noted. Surgicel was applied to the adnexa to ensure hemostasis. Each fallopian tube was sent to pathology in separate containers. Once hemostasis was noted, the uterus was allowed back into the pelvic cavity. The pelvis was irrigated with warm normal saline. Attention was turned to the adnexa where hemostasis was noted. Surgicel was applied to the uterine incision for further hemostasis. Interceed was then placed to prevent adhesions. The rectus muscles were reapproximated using 0 Vicryl in interrupted simple stitches 4. Once hemostasis was noted, the fascia was reapproximated using 0 Vicryl and some running stitch. Once hemostasis was noted skin incision was reapproximated using 4-0 Vicryl on a Kulwant needle in a subcuticular manner. Counts were correct 3. Patient tolerated procedure well state recovery room in stable condition.
[2018-04-20] MEDS ORDERED: LANSINOH TP PRN (05:01)
[2018-04-20] MEDS ORDERED: MORPHINE IV PRN (05:01)
[2018-04-20] MEDS ORDERED: SODIUM CHLORIDE FLUSH SYRINGE 10 ML IV PRN (05:01)
[2018-04-20] MEDS ORDERED: NARCAN 0.4 MG/1 ML IV PRN (05:01)
[2018-04-20] MEDS ORDERED: MOTRIN PO PRN (05:01)
[2018-04-20] MEDS ORDERED: D5LR 1,000 ML IV SCH (05:01)
[2018-04-20] MEDS ORDERED: TUCKS PAD TP PRN (05:01)
[2018-04-20 06:11] LABS: Bilirubin,Urine NEG (Negative); Blood,Urine LG (Negative); Color,Urine Yellow (Yellow); Mucus,Urine FEW /HPF; Protein,Urine <15 mg/dL mg/dL (Negative); Urobilinogen,Urine < 2.0 mg/dL (<2.0)
[2018-04-20 06:11] LABS: Hematocrit 36.7 % (30.3-42.9); Hemoglobin 12.2 gm/dl (10.1-14.3); Mean Corpuscular HGB Conc 33 % (30-34); Mean Corpuscular Hemoglobin 32 pg (28-32); Mean Corpuscular Volume 96 fl (79-97); Platelet Count 157 K/mm3 (140-440); Red Blood Count 3.81 M/mm3 (3.65-5.03); Red Cell Distribution Width 14.1 % (13.2-15.2)
[2018-04-20 06:46] LABS: Alanine Aminotransferase 16 units/L (7-56)
[2018-04-20] MEDS: ANCEF/NS 1 GM/50 ML 1 GM/50 ML BAG IV SCH ×2 (09:54→17:40)
[2018-04-20] MEDS: TORADOL IV PRN ×2 (09:56→17:34)
[2018-04-20 21:26] LABS: Hematocrit 32.3 % (30.3-42.9)
[2018-04-21] MEDS: PERCOCET 5/325 PO PRN ×4 (01:11→21:38)
[2018-04-21] MEDS ORDERED: BOOSTRIX IM ONE (06:00)
--- NOTE | 2018-04-21 08:43 | Progress Note ---
Assessment and Plan - Patient Problems (1) delivery delivered Onset Date: ~04/20/18 Current Visit: Yes Status: Acute Plan to address problem: Pt resting in bed caring for NB VSS FF below umb Lochia small Dressing D&I to be removed H&H1 minimal drop r/t blood loss from surgery Asymptomatic anemia Doing well s/p c/s P: continue pathway Advance diet and activity as tolerated. Subjective - Subjective Date of service: 04/21/18 (Pt asking for pain meds) Principal diagnosis: Day #1 s/p section Interval history: EDC Confirmation: 05/06/2018 Gestational Age: 20 5/7 weeks Past History : 4 Term Births: 2 Premature Births: 0 Living Children: 2 Para: 2 Mult. Births: 0 Prev : 0 Prev. attempt? 0 Aborta: 1 Elect. Ab: 1 Spont. Ab: 0 Ectopics: 0 # 1 Delivery date: 2004 Weeks Gestation: term labor: no Delivery type: Infant Sex: Female weight: 6#1 # 2 Delivery date: 2006 Weeks Gestation: term labor: no Delivery type: Infant Sex: Male weight: 6#9 # 3 Delivery date: 2013 Weeks Gestation: 6 Delivery type: EAB Risk Factors: Smoked Tobacco Use: Never smoker Smokeless Tobacco Use: Never Passive smoke exposure: no Drug use: no HIV high-risk behavior: low risk Alcohol use: no Seatbelt use: 100 % Family History Risk Factors: Family History of PR in females < 65 years old: no Family History of PR in males < 55 years old: no Past Medical History: Negative Past Medical History Past Surgical History: R ankle - screws and plates Past Medical History 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 of genital herpes: no Partner hx. of genital herpes: no Rash, Viral, or Febrile illness since last LMP? no Varicella/Chicken Pox Status: Previous Disease Genetic History Congenital Heart Defect: Mom: no Dad: no Shayla Disease: Mom: no Dad: no Thalassemia Mom: no Dad: no Neural Tube Defect Mom: no Dad: no Down's Syndrome Mom: no Dad: no Negro-Sachs Mom: no Dad: no Sickle Cell Disease/Trait Mom: no Dad: no Hemophilia Mom: no Dad: no Muscular Dystrophy Mom: no Dad: no Cystic Fibrosis Mom: no Dad: no Hui Chorea Mom: no Dad: no Mental Retardation Mom: no Dad: no Fragile X Mom: no Dad: no Other Genetic/Chromosomal Disorder Mom: no Dad: no Child w/other defect Mom: no Dad: no Enviromental Exposures Xray Exposure: no Medication, drug, or alcohol use since LMP: no Chemical/Other Exposure: no Exposure to Cat Liter: no Hx of Parvovirus (Fifth Disease): no Occupational Exposure to Children: none Current Allergies: No known allergies Patient reports: voiding normally, ambulating normally [place]: doing well Objective - Vital Signs Latest vital signs: Vital Signs Temp Pulse Resp BP BP Pulse Ox 04/21/18 07:59 98.1 F 87 18 120/61 100 04/21/18 04:00 98.7 F 69 18 110/74 04/21/18 00:00 98 F 71 16 114/74 04/20/18 20:00 98.7 F 78 18 110/78 04/20/18 17:34 20 04/20/18 16:49 102 H 94 04/20/18 12:54 10 L 101/53 100 04/20/18 12:05 98.5 F 84 18 96/48 100 04/20/18 09:56 20 Intake and Output 04/20/18 04/21/18 04/21/18 22:59 06:59 14:59 Intake Total 660 Output Total 1200 Balance -540 Intake: Oral 360 Intake, Free Water 300 Output: Urine 1200 Void 1200 Other: Total, Intake Amount 360 Total, Output Amount 1200 - Exam Breasts: Present: normal Cardiovascular: Present: Regular rate Lungs: Present: Normal air movement Abdomen: Present: normal appearance, soft, normal bowel sounds Uterus: Present: normal, fundal height below umbilicus Extremities: Present: normal Deep Tendon Reflex Grade: Normal +2 Incision: Present: normal, dry, intact
[2018-04-22] MEDS ORDERED: BOOSTRIX IM ONE (03:00)
[2018-04-22 08:14] VITALS: BP 149/85
[2018-04-22] MEDS: PERCOCET 5/325 PO PRN (08:15)
--- NOTE | 2018-04-22 08:31 | Discharge Summary ---
Providers - Providers Date of Admission: 04/18/18 09:17 Date of discharge: 04/22/18 (pt desires d/c today) Attending physician: JOSE ANGEL MCKEON 04/20/18 05:01 Consult to Emergency Medcl Emt [CONS] Routine Reason For Exam: Primary care physician: JOSE ANGEL MCKEON Hospitalization Reason for admission: induction of labor Delivery: Procedure: bilateral tubal ligation, primary low transverse Episiotomy: none Laceration: none Incision: normal, dry, intact Other procedures: none complications: none Discharge diagnosis: IUP at term delivered [place] baby: female Hospital course: uncomplicated section with bilateral tubal ligation failed IOL oligo Pt awake caring for NB C/O being sore but gets good relief with medication VSS FF below umb Lochia scant Incision D&I H&H stable No s/sx of anemia Doing well s /p section P: d/c today with instructions RTO 1 week postop care. RX provided at d/c Condition at discharge: Good Disposition: - TO HOME OR SELFCARE - Discharge Diagnoses (1) delivery delivered Status: Acute Comment: RTO 1 week postop care Plan - Discharge Medications Prescriptions: Docusate Sodium [Colace] 100 mg PO BID PRN #30 capsule PRN Reason: Constipation Ferrous Sulfate [Feosol 325 MG tab] 325 mg PO BID #90 tablet Ibuprofen [Motrin 800 MG tab] 800 mg PO TID PRN #30 tablet PRN Reason: Pain oxyCODONE /ACETAMINOPHEN [Percocet 5/325 mg] 1 - 2 tab PO Q4HR PRN #30 tablet PRN Reason: Pain - Provider Discharge Summary Activity: routine, no sex for 6 weeks, no heavy lifting 4 weeks, no strenuous exercise Diet: routine Instructions: routine Additional instructions: [] Smoking cessation referral if applicable(refer to patient education folder for contact #) [] Refer to [facility]'s [facility] Booklet Call your doctor immediately for: * Fever > 100.5 * Heavy vaginal bleeding ( >1 pad per hour) * Severe persistent headache * Shortness of breath * Reddened, hot, painful area to leg or breast * Drainage or odor from incision. * Keep incision clean and dry at all times and follow doctor's instructions regarding bathing/showering - Follow up plan Follow up: JOSE ANGEL MCKEON MD [Primary Care Provider] - 7 Days (Congratulations! Please call [phone] to schedule your postoperative visit in 1 week. Take medications as prescribed. Call with concerns.)
== END 2018-04-22 14:45 | disposition home or self-care (01) | DRG 765 ==
LOC: LD 09:17 → APU 04-20 03:05 → OB 04-20 05:33
PROVIDERS: ADMIT Obstetrics & Gynecology; ATTEND Obstetrics & Gynecology
PROC: 10D00Z1 Extraction of Products of Conception, Low, Open Approach (ICD-10-PCS; principal; 2018-04-20)
PROC: 0UT70ZZ Resection of Bilateral Fallopian Tubes, Open Approach (ICD-10-PCS; 2018-04-20)
DX: O41.03X0 Oligohydramnios, third trimester, not applicable or unspecified (principal); O76 Abnormality in fetal heart rate and rhythm complicating labor and delivery; Z68.42 Body mass index [BMI] 45.0-49.9, adult; E66.01 Morbid (severe) obesity due to excess calories; Z3A.37 37 weeks gestation of pregnancy; Z37.0 Single live birth; Z71.3 Dietary counseling and surveillance; O61.9 Failed induction of labor, unspecified; Z82.49 Family history of ischemic heart disease and other diseases of the circulatory system; Z30.2 Encounter for sterilization
CPT/HCPCS: 36415; 59200; 81001; 82565; 83615; 84450; 84460; 84550; 85014; 85018; 85027; 86592; 86850; 86900; 86901; 88302; 88307; 90471; 90715; 96360; 96361; 96365; 96366; 96374; 96376; J0360; J0690; J1170; J1885; J2370; J2405; J2590; J2765; J3010; J7120; J7121